=== PATIENT | male | born 1975 | race Caucasian/White ===

== ENCOUNTER 2022-11-21 10:04 | Emergency (ER) | payer OTHER, SELFPAY ==
--- NOTE | ~2022-11-21 | CT_ITS ---
EXAMINATION: CT abdomen pelvis w con DATE: 11/21/2022 12:01 INDICATION: Left flank pain. TECHNIQUE: Computed tomography (CT) of the abdomen and pelvis was performed with 100 mL Omnipaque 350 intravenous contrast. Automated exposure control and iterative reconstruction technique were employe d. The dose-length product was 544.07 mGy-cm. COMPARISON: None. FINDINGS: The visualized portions of the lung bases demonstrate mild atelectasis. No pleural effusion . The heart size is normal. No pericardial effusion. The liver, gallbladder, spleen, pancreas, adrena l glands, and right kidney are normal. There is mild left hydronephrosis. There is a 2 mm stone in pr oximal left ureter. There are bilateral inguinal hernias containing fat. There are no dilated loops o f bowel. The appendix is normal. There is calcified atherosclerosis of the aorta and many of the othe r arteries. There are no pathologically enlarged lymph nodes. There is no free intraperitoneal fluid. There is mild thoracic and lumbar spondylosis. IMPRESSION: 1. 2 mm stone in proximal left ureter with mild left hydronephrosis. Reviewed, dictated and finalized at location A.
[2022-11-21 10:04] VITALS: BP 167/89; PULSE 74; RESP 16; TEMP 36.8; O2SAT 99
--- NOTE | 2022-11-21 10:09 | ED.GENADULT ---
HPI - General Adult General Chief complaint: Abdominal Pain Stated complaint: LEFT FLANK PAIN Time Seen by Provider: 11/21/22 10:09 Source: patient Mode of arrival: ambulatory Limitations: no limitations History of Present Illness HPI narrative: This is a 47-year-old male who presents to the ED with chief complaint of left flank pain x3 hours. Patient states that she woke up this morning and started to have the pain in his left flank. States he has been feeling fine otherwise slightly. Reports associated diaphoresis, nausea and one episode of vomiting. States the pain does not radiate. Reports 8 out of 10 pain that will occasionally increase in severity. Denies fevers, chills, urinary symptoms, problems with bowel movements, chest pain, shortness of breath, cough. Related Data Allergies Allergy/AdvReac Type Severity Reaction Status Date / Time No Known Allergies Allergy Verified 11/21/22 10:07 Review of Systems Review of Systems: All systems as dictated in HPI Exam Narrative: GENERAL: Well-appearing, well-nourished, and in no acute distress. HEAD: Normocephalic, atraumatic. EYES: PERRLA and EOMI. ENT: Nares clear, no rhinorrhea or epistaxis. Mucous membranes moist. Oropharynx without tonsillar hypertrophy exudate or other lesions. NECK: Supple. No adenopathy or masses. CHEST: No respiratory distress. Clear to auscultation. No wheezes rales or rhonchi HEART: Regular rate and rhythm. No murmur heard. Normal peripheral pulses. ABDOMEN: Left flank tenderness present. Negative right flank tenderness. Soft, otherwise nontender, nondistended, normal active bowel sounds. MSK: Normal range of motion. No edema. SKIN: Warm, dry, no rash. NEURO: Alert and oriented x3. No focal deficits. PSYCH: Normal mood and affect. Course Vital Signs Vital signs: Vital Signs Temperature 98.2 F 11/21/22 10:04 Pulse Rate 74 11/21/22 10:04 Respiratory Rate 16 11/21/22 10:04 Blood Pressure 167/89 H 11/21/22 10:04 Pulse Oximetry 99 11/21/22 10:04 Temperature 98.2 F 11/21/22 10:04 Pulse Rate 74 11/21/22 10:04 Respiratory Rate 16 11/21/22 10:04 Blood Pressure 167/89 H 11/21/22 10:04 Pulse Oximetry 99 11/21/22 10:04 Medical Decision Making MDM Narrative Medical decision making narrative: This is a 47-year-old male who presents to the ED with chief complaint of left leg pain onset today. Associated nausea, sweats and vomiting. Vitals are normal. Exam shows left flank tenderness. He appears in pain with renal colic. Labs show initial white count of 14.4. CMP unremarkable. UA shows evidence of ketones, protein and blood but no evidence of infection. CT scan shows 2 mm stone in proximal left ureter with mild left hydronephrosis.. Symptoms were well controlled here with Dilaudid and Zofran. Upon my reevaluation patient states he would like to go home. Prescriptions for [place], Zofran, Flomax given. Pt will be discharged in stable condition. Return precautions given and supportive measures discussed. Pt is understanding and agreeable with plan for discharge and follow-up with PCP. Vital Signs Vital Signs: Vital Signs Temperature 98.2 F 11/21/22 10:04 Pulse Rate 74 11/21/22 10:04 Respiratory Rate 16 11/21/22 10:04 Blood Pressure 167/89 H 11/21/22 10:04 Pulse Oximetry 99 11/21/22 10:04 Temperature 98.2 F 11/21/22 10:04 Pulse Rate 74 11/21/22 10:04 Respiratory Rate 16 11/21/22 10:04 Blood Pressure 167/89 H 11/21/22 10:04 Pulse Oximetry 99 11/21/22 10:04 Lab Data 11/21/22 10:46 11/21/22 10:46 Labs: Lab Results 11/21/22 11/21/22 Range/Units 10:46 11:29 WBC 14.4 H (4.5-10.0) K/mm3 RBC 5.05 (4.6-6.20) M/mm3 Hgb 16.7 (14.0-18.0) g/dL Hct 49.2 (42.0-52.0) % MCV 97.4 (80-100) fl MCH 33.1 (26-34) pg MCHC 33.9 (32-36) g/dl RDW 12.9 (11.5-14.5) % Plt Count 202 (150-375) k/m
[2022-11-21] MEDS: HYDROmorphone HCL INJ (*CRX) 1 MG/ML SYR 0.5 MG IV PUSH (10:47)
[2022-11-21] MEDS: ONDANSETRON INJ 4 MG/2 ML VIAL IV PUSH (10:48)
[2022-11-21 10:54] LABS: Basophils Absolute Auto 0.1 K/mm3 (0.0-0.1); Basophils Percent Auto 0.5 % (0.2-1.2); Eosinophils Percent Auto 0.1 % (0-4.4); Hematocrit 49.2 % (42.0-52.0); Hemoglobin 16.7 g/dL (14.0-18.0); Immature Granulocyte Absolute 0.05 K/mm3 (0.00-0.031); Immature Granulocyte Percent A 0.3 % (0-0.5); Lymphocytes Absolute Auto 1.22 K/mm3 (0.9-3.2); Lymphocytes Percent Auto 8.5 % (18.3-44.2); Mean Corpuscular HGB Conc 33.9 g/dl (32-36); Mean Corpuscular Hemoglobin 33.1 pg (26-34); Mean Corpuscular Volume 97.4 fl (80-100); Mean Platelet Volume 9.7 fl (7.4-10.4); Monocytes Absolute Auto 0.4 K/mm3 (0.1-0.6); Monocytes Percent Auto 2.7 % (2.6-8.5); Neutrophils Absolute Auto 12.6 K/mm3 (1.3-6.7); Neutrophils Percent Auto 87.9 % (45.5-73.1); Platelet Count Result 202 k/mm3 (150-375); Red Blood Count 5.05 M/mm3 (4.6-6.20); Red Cell Distribution Width 12.9 % (11.5-14.5); White Blood Count 14.4 K/mm3 (4.5-10.0)
[2022-11-21 11:21] LABS: Alanine Aminotransferase 25 U/L (6-50); Albumin Level 4.2 g/dL (3.5-5.1); Alkaline Phosphatase 74 U/L (38-126); Anion Gap 3 mmol/L (8-16); Aspartate Amino Transferase 26 U/L (17-59); Bilirubin,Total 0.6 mg/dL (0.2-1.3); Blood Urea Nitrogen 18 mg/dL (9-20); Calcium 8.8 mg/dL (8.4-10.2); Carbon Dioxide 28 mmol/L (22-30); Chloride 104 mmol/L (98-107); Estimated CRCL calculation 80 ml/min; Estimated Glomerular Filt Rate > 60; Glucose 139 mg/dL (65-110); Potassium 4.2 mmol/L (3.4-5.0); Sodium 135 mmol/L (137-145)
[2022-11-21 11:43] LABS: Appearance Urine Cloudy (Clear); Bacteria Urine None Seen /hpf; Bilirubin Urine Negative (Negative); Blood Urine 3+ (Negative); Color Urine Dark Yellow (Yellow); Glucose Urine UA Negative (Negative); Ketones Urine 1+ mg/dL (Negative); Leukocyte Esterase Ur Trace LEU/UL (Negative); Nitrate Urine Negative (Negative); Protein Urine 1+ mg/dL (Negative); RBC Urine 51-100 /hpf (0-2); Squamous Epithelial Cell Urine None seen /hpf (Few); Urobilinogen Urine 0.2 mg/dL (<2.0); WBC Urine 0-5 /hpf
[2022-11-21 11:45] LABS: Add Urine Microscopic? YES
[2022-11-21] MEDS: SODIUM CHLORIDE 0.9% IV 1,000 ML 999 ML IV CONT (11:45)
== END 2022-11-21 13:54 | disposition home or self-care (01) ==
PROVIDERS: Emergency Provider Physician Assistant; PCP Family Medicine
DX: N13.2 Hydronephrosis with renal and ureteral calculous obstruction (principal)
CPT/HCPCS: 36415; 74177; 80053; 81001; 85025; 96361; 96374; 96375; 99284; J1170; J2405; J7030; Q9967